=== PATIENT | male | born 1940 | race Caucasian/White ===

== ENCOUNTER 2016-08-04 09:20 | Observation (INO) | payer OTHER, BC ==
[2016-08-04 14:15] LABS: INR 1.06 (0.83-1.16); PROTIME(PATIENT) 13.7 SEC (12.0-15.0)
[2016-08-04] MEDS ORDERED: LIDOCAINE 1% 300 MG/30 ML SDV ONE (15:27)
--- NOTE | 2016-08-04 16:58 | GHP ---
[f rep st] HISTORY AND PHYSICAL DATE OF ADMISSION: 08/04/2016 CHIEF COMPLAINT: Gait disturbance. HISTORY: The patient is a 75-year-old male who has had progressive decline, progressing rapidly sin ce his knee surgery last December. He has developed a shuffling, wide-base gait. He will often karina jl for 5 seconds during ambulation. He has had progressive cognitive decline. He has developed ne w urine and bowel incontinence, although his was unclear whether that might just be he cannot g et to the bathroom in time. They have been seeing Dr. Colvin as an outpatient. He is now being admitted to the hospital to rule out normal pressure hydrocephalus. He had an outpatient CT scan bu t is unable to get MRI secondary to pacemaker. He denies any headache. There have been no other re cent illnesses. He does have a history of recurrent strokes and TIAs and, under the recommendation of neurologist, has been holding Aggrenox since Thursday and they intend to resume at 24 hours after l umbar puncture. PAST MEDICAL HISTORY: 1. Diabetes type 2. 2. Dementia. 3. Gout. 4. Hypertension. 5. History of recurrent strokes and TIAs. 6. Pacemaker due to pauses. 7. BPH, status post GreenLight treatment. PAST SURGICAL HISTORY: Total knee arthroplasty. MEDICATIONS: Please see computer record for full detailed list. He has been holding his Aggrenox s matt Thursday. ALLERGY: To Plavix and iodine. SOCIAL HISTORY: No smoking. No alcohol. Lives with his . REVIEW OF SYSTEMS: Complete review of systems obtained. Review of systems is negative on constitut ional, HEENT, GI, pulmonary, cardiovascular, , hematology, skin, musculoskeletal, endocrine, psych except for positives and negatives as noted in HPI. FAMILY HISTORY: Reviewed and noncontributory to presenting complaint. PHYSICAL EXAMINATION: GENERAL: Well-developed, well-nourished male, in no acute distress. VITAL S IGNS: Temperature is 36.9, pulse 62, blood pressure 147/66, saturating 94% on room air. EYES: Norm al conjunctivae. Pupils react to light. ENT: Normal ears and nose. Hearing intact. Normal teeth . Oropharynx moist. NECK: Trachea midline. No thyromegaly. CHEST: Normal respiratory effort. L UNGS: Clear to auscultation bilaterally. CARDIOVASCULAR: Regular rhythm. No murmur. No lower ex tremity edema. ABDOMEN: Soft, nontender. No hepatosplenomegaly. SKIN: Warm, dry, intact. No ra sh. MUSCULOSKELETAL: No cyanosis or clubbing. Strength is 5/5 upper and lower extremities. NEURO : Cranial nerves intact. Normal sensation to light touch. PSYCH ASSESSMENT: He is alert and orien alfredo x2. Flat affect. Minimally conversant. Will answer only very simple questions briefly. Poor judgment and insight. Poor memory. Gait is assessed. He has a wide base, very shuffling gait. He is stooped forward. He is relatively steady on his feet with a cane and does not appear to be a fa ll risk. DATA: Platelets are 77. INR is normal at 1.06. OLD CHART REVIEW: There are minimal records here, although he did have surgery here with Dr. Matson in April 2015 at which point he had a GreenLight photo vaporization of the prostate for BPH. There are some old labs in the chart including platelets of 118 in April. I have spoken with Dr. Colvin who was seeing him as an outpatient. Intention of this admission w as diagnostic large volume lumbar puncture. He asked me to evaluate the gait both pre and post lumb ar puncture for comparison. ASSESSMENT/PLAN: 1. Gait disturbance, incontinence and cognitive decline. Need to rule out normal pressure hydrocep halus. His outside CT scan is not available to me but presumably it was consistent. He is unable t o get MRI due to pacemaker. He will get a large volume lumbar puncture this morning. I have assess ed his gait on admission and we will reassess tomorrow after tap. Neurology will see him in consult ation. 2. Dementia. Continue Aricept and amantadine. 3. History of stroke. He has been holding Aggrenox for 2 days. This will be resumed 24 hours afte r his procedure. 4. Diabetes type 2. Continue metformin and Actos. 5. Pacemaker. Unfortunately, he is unable to get MRI. 6. Thrombocytopenia. This appears chronic as his platelets were only 118 last April. Will recheck in the morning. CODE STATUS: Full. ADMISSION STATUS: 1. Will admit to observation as I anticipate discharge home tomorrow after procedure. 2. DVT prophylaxis. He is high risk, but will use SCDs only due to planned procedure. /[id number]/MODL
[2016-08-04] MEDS ORDERED: NON-FORMULARY NEW DRUG (Metformin Hcl [Glucophage 1000 Mg] 1,000 MG) PO SCH (18:00)
[2016-08-04] MEDS: metFORMIN HCL 500 MG TAB PO SCH (18:22)
[2016-08-04] MEDS ORDERED: ATORVASTATIN CALCIUM 40 MG TAB PO SCH (21:00)
[2016-08-04] MEDS ORDERED: DUTASTERIDE 0.5 MG CAP PO SCH (21:00)
[2016-08-04] MEDS ORDERED: NON-FORMULARY NEW DRUG (Memantine Hcl [Namenda 10 Mg] 10 MG) PO SCH (21:00)
[2016-08-04] MEDS ORDERED: NON-FORMULARY NEW DRUG (Donepezil Hcl [Aricept] 10 MG) PO SCH (21:00)
[2016-08-04 21:04] VITALS: RESP 16
[2016-08-04] MEDS: DONEPEZIL HCL 5 MG TAB PO SCH ×2 (21:14→21:15)
[2016-08-04] MEDS: FERROUS SULFATE 325 MG TAB PO SCH (21:14)
[2016-08-04] MEDS: MEMANTINE HCL 5 MG TAB PO SCH (21:14)
[2016-08-04] MEDS: MAGNESIUM OXIDE 400 MG TAB PO SCH (21:14)
[2016-08-05 05:26] LABS: % IMMATURE GRANULYOCYTES 0.6 % (0.0-1.1); ABSOLUTE IMMATURE GRANULOCYTES 0.04 10^3/uL (0.00-0.10); ADD DIFF? NO; ADD MORPH? NO; ADD SCAN? NO; ATYPICAL LYMPHOCYTE FLAG 0 (0-99); FRAGMENT RBC FLAG 0 (0-99); HEMATOCRIT 31.2 % (40.0-51.0); HEMOGLOBIN 10.9 g/dL (13.7-17.5); LEFT SHIFT FLG 0 (0-99); LIPEMIA HEMOLYSIS FLAG 90 (0-99); MEAN CELL HEMOGLOBIN 29.5 pg (27.9-34.1); MEAN CELL HEMOGLOBIN CONCENTR. 34.9 g/dL (32.4-36.7); MEAN CELL VOLUME 84.6 fL (81.5-99.8); MEAN PLATELET VOLUME 9.9 fL (8.7-11.7); PLATELET CLUMPS FLAG 0 (0-99); PLATELET COUNT 79 10^3/uL (150-400); RED BLOOD CELL COUNT 3.69 10^6/uL (4.40-6.38); RED CELL DISTRIBUTION WIDTH 14.6 % (11.5-15.2)
[2016-08-05 05:38] LABS: ANION GAP 7 mEq/L (8-16); CALCIUM 9.1 mg/dL (8.5-10.4); CARBON DIOXIDE 29 mEq/l (22-31); CHLORIDE 98 mEq/L (97-110); CREATININE 1.1 mg/dL (0.7-1.3); GLOMERULAR FILTRATION RATE > 60; GLUCOSE 85 mg/dL (70-100); POTASSIUM 3.7 mEq/L (3.5-5.2); SODIUM 134 mEq/L (134-144)
[2016-08-05 07:49] VITALS: PULSE 59; TEMP 98.7; O2SAT 91
[2016-08-05] MEDS ORDERED: PIOGLITAZONE HCL 15 MG TAB PO SCH (09:00)
[2016-08-05] MEDS ORDERED: CYANO/VITAMIN B12 1000 MCG TAB PO SCH (09:00)
[2016-08-05] MEDS ORDERED: LOSARTAN POTASSIUM 50 MG TAB PO SCH (09:00)
[2016-08-05] MEDS ORDERED: ESCITALOPRAM OXALATE 10 MG TAB PO SCH (09:00)
[2016-08-05] MEDS ORDERED: CHOLECALCIFEROL VIT D3 2,000 UNITS TAB/CAP PO SCH (09:00)
[2016-08-05] MEDS ORDERED: NON-FORMULARY NEW DRUG (Pioglitazone Hcl [Actos] 45 MG) PO SCH (09:00)
[2016-08-05] MEDS: FERROUS SULFATE 325 MG TAB PO SCH (09:56)
[2016-08-05] MEDS: MAGNESIUM OXIDE 400 MG TAB PO SCH (09:57)
[2016-08-05] MEDS: MEMANTINE HCL 5 MG TAB PO SCH (09:57)
[2016-08-05] MEDS: metFORMIN HCL 500 MG TAB PO SCH (09:58)
[2016-08-05 14:15] VITALS: BP 146/65
--- NOTE | 2016-08-05 17:07 | GDS ---
[f rep st] DISCHARGE SUMMARY DISCHARGE DIAGNOSES: 1. Probable Lewy body dementia, rule out normal-pressure hydrocephalus. 2. Gait disturbance, incontinence, and cognitive decline. 3. History of stroke. 4. Diabetes, type 2. 5. Pacemaker. 6. Thrombocytopenia history. HOSPITAL COURSE: The patient is a 75-year-old male, who has been seeing Dr. Marv Colvin as an ou tpatient for his cognitive decline. Dr. Colvin feels this is likely Lewy body dementia, but they did decide to rule out normal-pressure hydrocephalus. He was admitted to the hospital for diagnost ic lumbar puncture, with pre-ambulation and post-ambulation assessments. Unfortunately, the lumbar puncture was unsuccessful, and they were unable to obtain more than 5 cc of fluid. He is subsequent ly discharged home in his baseline status. If further concern for normal-pressure hydrocephalus, he should be referred to [facility] where they have a protocol for diagnostic lumb ar puncture with pre-ambulation and post-ambulation exam in a more formal setting. He may resume hi s Aggrenox 24 hours after lumbar puncture. DISCHARGE MEDICATIONS: Please see computerized record for full detailed list. There are no new med ications given at time of hospital discharge. ADDITIONAL DISCHARGE INSTRUCTIONS: 1. Follow up with Dr. Colivn and primary care as needed. 2. Home Health PT/OT and VNS were offered and declined. The patient was seen and examined by me on the day of discharge. /[id number]/MODL
[2016-08-06] MEDS ORDERED: FUROSEMIDE 20 MG TAB PO SCH (09:00)
== END 2016-08-05 14:34 | disposition home or self-care (01) ==
LOC: F3N 12:03
PROVIDERS: ADMIT Internal Medicine; ATTEND Internal Medicine
PROC: 009U3ZZ Drainage of Spinal Canal, Percutaneous Approach (ICD-10-PCS; principal; 2016-08-04)
DX: R26.89 Other abnormalities of gait and mobility (principal); F03.90 Unspecified dementia, unspecified severity, without behavioral disturbance, psychotic disturbance, mood disturbance, and anxiety; R41.9 Unspecified symptoms and signs involving cognitive functions and awareness; R32 Unspecified urinary incontinence; R15.9 Full incontinence of feces; D69.6 Thrombocytopenia, unspecified; E11.9 Type 2 diabetes mellitus without complications; M10.9 Gout, unspecified; I10 Essential (primary) hypertension; N40.0 Benign prostatic hyperplasia without lower urinary tract symptoms; Z96.659 Presence of unspecified artificial knee joint; Z86.73 Personal history of transient ischemic attack (TIA), and cerebral infarction without residual deficits; Z95.0 Presence of cardiac pacemaker
CPT/HCPCS: 62272; 97116; 97163; 97166; G8978; G8979; G8980; G8987; G8988

== ENCOUNTER 2017-05-28 15:28 | Observation (INO) | payer OTHER, BC ==
[2017-05-28] MEDS ORDERED: NS 1,000 ML IV ONE (15:30)
[2017-05-28 15:42] LABS: PLATELET COUNT 80 10^3/uL (150-400)
--- NOTE | 2017-05-28 15:43 | CPEKG ---
Heart Rate: 67 RR Interval: 896 P-R Interval: 300 QRSD Interval: 148 QT Interval: 436 QTC Interval: 461 QRS Blairs: -73 T Wave Blairs: 23 EKG Severity - ABNORMAL ECG - EKG Impression: ATRIAL-PACED RHYTHM EKG Impression: RBBB AND LAFB Electronically Signed By: Uday Veliz 28-May-2017 15:58:49
[2017-05-28 15:52] LABS: INR 0.97 (0.83-1.16); PROTIME(PATIENT) 13.1 SEC (12.0-15.0)
[2017-05-28] MEDS ORDERED: IOPAMIDOL (ISOVUE 370) 100 ML BTL IV ONE (15:52)
--- NOTE | 2017-05-28 15:56 | EDPHY ---
H & P Time Seen by Provider: 05/28/17 15:30 HPI/ROS: CHIEF COMPLAINT: Slurred speech HISTORY OF PRESENT ILLNESS: The patient is a 76-year-old man with a history of Lewy body dementia as well as diabetes and recurrent the CVA and TIAs as well as pacemaker. He was sent from Dr. Colvin office for stroke. Around 9 o' clock this morning he began having slurred speech. He presented to the neurologist where he is followed and Vinicius found him to have slurred speech but no other deficits. He called an ambulance to bring him here. His glucose is 331. They report time of onset around 9:00 a.m.. REVIEW OF SYSTEMS: Unable to obtain secondary to condition EXAM: GENERAL: Moderate distress HEAD: Atraumatic, normocephalic. EYES: Pupils equal round and reactive to light, extraocular movements intact, sclera anicteric, conjunctiva are normal. ENT: TMs normal, nares patent, oropharynx clear without exudates. Dry Moist mucous membranes. NECK: Normal range of motion, supple without lymphadenopathy or JVD. LUNGS: Breath sounds clear to auscultation bilaterally and equal. No wheezes rales or rhonchi. HEART: Regular rate and rhythm without murmurs, rubs or gallops. ABDOMEN: Soft, nontender, normoactive bowel sounds. No guarding, no rebound. No masses appreciated. BACK: No CVA tenderness, no spinal tenderness, step-offs or deformities EXTREMITIES: Normal range of motion, no pitting or edema. No clubbing or cyanosis. NEUROLOGICAL: NIH stroke score since 8. I calculate deficits for difficulty knowing the month, difficulty with gaze tracking, some minor paralysis to the right nasolabial fold and smile asymmetry as well as no offered and can't described in the right leg mild to moderate dysarthria and trouble with attention. Some of this may be baseline however according to including the right leg weakness and not knowing the month. normal sensation PSYCH: Normal mood, normal affect. SKIN: Warm, dry, normal turgor, no visible rashes or lesions. Source: Patient Exam Limitations: No limitations - Medical/Surgical History Hx Asthma: No Hx Chronic Respiratory Disease: No Hx Diabetes: Yes Hx Cardiac Disease: No Hx Renal Disease: No Hx Cirrhosis: No Hx Alcoholism: No Hx HIV/AIDS: No Hx Splenectomy or Spleen Trauma: No Other PMH: pacemaker, total knee replace 12/25 right, green light prostated surgery, DM 2, cva x2 and tia, - Family History Significant Family History: No pertinent family hx - Social History Smoking Status: Never smoked Alcohol Use: Sober Drug Use: None Constitutional: Initial Vital Signs Temperature (C) 37.1 C 05/28/17 15:34 Heart Rate 84 05/28/17 15:34 Respiratory Rate 16 05/28/17 15:34 Blood Pressure 138/99 H 05/28/17 15:34 O2 Sat (%) 90 L 05/28/17 15:34 O2 Delivery Mode Nasal Cannula O2 (L/minute) 2 Allergies/Adverse Reactions: Horse/Equine Containing Products Allergy (Severe, Verified 05/10/15 11:04) Anaphylaxis clopidogrel bisulfate [From Plavix] Allergy (Intermediate, Verified 05/10/15 11: 04) Hives allopurinol Allergy (Verified 05/28/17 15:53) Iodine and Iodide Containing Produc Allergy (Verified 08/04/16 12:38) Hives ragweed pollen Allergy (Verified 08/04/16 12:38) Home Medications: Medication Instructions Recorded Atorvastatin Calcium [Lipitor 40 40 mg PO HS 08/04/16 mg (*)] Cholecalciferol Vit D3 [Vitamin D3 2,000 units PO DAILY 08/04/16 2000 units tab (OTC)] Cyanocobalamin [Vitamin B12 (*)] 1,000 mcg PO DAILY 08/04/16 Donepezil HCl [Aricept] 10 mg PO HS 08/04/16 Ferrous Sulfate [Ferrous Sulf 325 325 mg PO BID 08/04/16 MG (*)] Furosemide [Lasix 20 MG (*)] 20 mg PO Q2D 08/04/16 Losartan Potassium [Cozaar 50 mg 50 mg PO DAILY 08/04/16 (*)] Magnesium Oxide [Magnesium Oxide 400 mg PO BID 08/04/16 400 mg (*)] Memantine HCl [Namenda 10 mg] 10 mg PO BID 08/04/16 Pioglitazone HCl [Actos] 45 mg PO DAILY 08/04/16 metFORMIN HCL [Glucophage 1000 mg] 1,000 mg PO BIDMEAL 08/04/16 Aspirin EC [Aspirin EC 81 mg (*)] 81 mg PO DAILY 05/28/17 Medical Decision Making - Diagnostics EKG Interpretation: An EKG obtained and was read and documented in trace view. Please see trace view for full reading and report. Atrial paced rhythm, no previous for comparison Imaging Results: Imaging Impressions Chest X-Ray 05/28/17 15:31 Impression: Hypoventilated lungs mild airways disease. No acute process. Head CT 05/28/17 15:31 Impression: 1. No acute intracranial hemorrhage or evidence of cortical ischemia. 2. Atrophy and moderate diffuse periventricular white matter disease. Findings discussed with Emergency Department physician, Uday Veliz M.D., on May 28, 2017 at 1544. Head CTA 05/28/17 15:31 Impression: 1. No acute vascular findings. 2. Left mastoid fluid opacification and partial middle ear opacification, with equivocal osseous destruction, which could be related to mastoiditis. 3. Degenerative change in the cervical spine, with multilevel moderate spinal canal narrowing. 4. Additional findings, as above. Stenoses are calculated using [place] Symptomatic Carotid Endarterectomy Trial (NASCET) criteria. Findings discussed with Uday Veliz M.D., on May 28, 2017 at 1643. Neck CTA 05/28/17 15:31 Impression: 1. No acute vascular findings. 2. Left mastoid fluid opacification and partial middle ear opacification, with equivocal osseous destruction, which could be related to mastoiditis. 3. Degenerative change in the cervical spine, with multilevel moderate spinal canal narrowing. 4. Additional findings, as above. Stenoses are calculated using [place] Symptomatic Carotid Endarterectomy Trial (NASCET) criteria. Findings discussed with Uday Veliz M.D., on May 28, 2017 at 1643. Imaging: Discussed imaging studies w/ mail caller Radiologist ED Course/Re-evaluation: Patient has clear deficits that appear to be new today however it is difficult to calculate an NIH stroke score because of his baseline dementia and trouble with his right leg at baseline. According to the his slurred speech and facial abnormalities are certainly new. It is also difficult to ascertain at time of onset. states that he seemed normal when he woke up but then he went back to sleep and when she came home from errands around 9 o'clock he had the symptoms. Patient will not qualify for tPA because of the time as well as the difficult and examination. I will perform CT angio to see if there is possibility for percutaneous intervention and will consult Neurology. 5:15 p.m. I discussed the case with Dr. Ellisno who will admit. Differential Diagnosis: Partial list of the Differential diagnosis considered include but were not limited to; CVA, dissection, hemorrhage and although unlikely based on the history and physical exam, I also considered electrolyte abnormality, infection. - Data Points Laboratory Results: Laboratory Results 05/28/17 15:29 05/28/17 15:29 05/28/17 05/28/17 05/28/17 15: 15: 15: WBC 8.71 10^3/uL 10^3/uL (3.80-9.50) RBC 4.22 10^6/uL L 10^6/uL (4.40-6.38) Hgb 11.7 g/dL L g/dL (13.7-17.5) Hct 34.3 % L % (40.0-51.0) MCV 81.3 fL L fL (81.5-99.8) MCH 27.7 pg L pg (27.9-34.1) MCHC 34.1 g/dL g/dL (32.4-36.7) RDW 14.6 % % (11.5-15.2) Plt Count 80 10^3/uL L 10^3/uL (150-400) MPV 9.5 fL fL (8.7-11.7) Neut % (Auto) 78.4 % H % (39.3-74.2) Lymph % (Auto) 12.3 % L % (15.0-45.0) [place] % (Auto) 6.0 % % (4.5-13.0) Eos % (Auto) 2.5 % % (0.6-7.6) Baso % (Auto) 0.3 % % (0.3-1.7) Nucleat RBC Rel Count 0.0 % % (0.0-0.2) Absolute Neuts (auto) 6.83 10^3/uL H 10^3/uL (1.70-6.50) Absolute Lymphs (auto) 1.07 10^3/uL 10^3/uL (1.00-3.00) Absolute Monos (auto) 0.52 10^3/uL 10^3/uL (0.30-0.80) Absolute Eos (auto) 0.22 10^3/uL 10^3/uL (0.03-0.40) Absolute Basos (auto) 0.03 10^3/uL 10^3/uL (0.02-0.10) Absolute Nucleated RBC 0.00 10^3/uL 10^3/uL (0-0.01) Immature Gran % 0.5 % % (0.0-1.1) Immature Gran # 0.04 10^3/uL 10^3/uL (0.00-0.10) PT 13.1 SEC SEC (12.0-15.0) INR 0.97 (0.83-1.16) APTT 35.5 SEC SEC (23.0-38.0) Sodium 140 mEq/L mEq/L (135-145) Potassium 4.8 mEq/L mEq/L (3.5-5.2) Chloride 99 mEq/L mEq/L (97-110) Carbon Dioxide 31 mEq/l mEq/l (22-31) Anion Gap 10 mEq/L mEq/L (8-16) BUN 25 mg/dL H mg/dL (7-23) Creatinine 1.2 mg/dL mg/dL (0.7-1.3) Estimated GFR 59 Glucose 272 mg/dL H mg/dL (70-100) Calcium 9.1 mg/dL mg/dL (8.5-10.4) Troponin I < 0.012 ng/mL ng/mL (0.000-0.034) Medications Given: Discontinued Medications Diphenhydramine HCl (Benadryl Injection) 50 mg IVP EDNOW ONE Stop: 05/28/17 16:07 Last Admin: 05/28/17 16:06 Dose: 50 mg Sodium Chloride (Ns) 1,000 mls @ 500 mls/hr IV EDNOW ONE PRN Reason: Protocol Stop: 05/28/17 17:29 Last Admin: 05/28/17 15:45 Dose: 1,000 mls Methylprednisolone Sodium Succinate (Solu-Medrol) 125 mg IVP EDNOW ONE Stop: 05/28/17 16:07 Last Admin: 05/28/17 16:06 Dose: 125 mg Departure - Departure Disposition: [facility] Acute Clinical Impression: Acute ischemic stroke Condition: Fair
[2017-05-28] MEDS ORDERED: methylPREDNISolone SOD SUCC 125 MG/2 ML VIAL IVP ONE (16:06)
[2017-05-28] MEDS ORDERED: ONDANSETRON 4 MG/2 ML VIAL IVP PRN (20:02)
[2017-05-28] MEDS ORDERED: HYDROCODONE/APAP 5/325 TAB PO PRN (20:02)
[2017-05-28] MEDS ORDERED: ACETAMINOPHEN 325 MG TAB PO PRN (20:02)
[2017-05-28] MEDS ORDERED: ONDANSETRON DISINTEGRATING 4 MG TAB PO PRN (20:02)
[2017-05-28] MEDS ORDERED: D50W 25 GM/50 ML VIAL IVP PRN (20:04)
--- NOTE | 2017-05-28 20:22 | PDGENHP ---
History and Physical - Chief Complaint slurred speech - History of Present Illness The patient is a 76-year-old man with a history of Lewy body dementia as well as diabetes and recurrent the CVA and TIAs as well as pacemaker. He was sent from Dr. Colvin office to the ED for possible troke. Around 9 o'clock this morning, he began having slurred speech. He presented to the neurologist where he is followed and Vinicius found him to have slurred speech but no other deficits. He called an ambulance to bring him here. They report time of onset around 9:00 a.m.. He was felt not to be a TPA candidate. Neck CTA, HeadCTA, Head CT were unremarkable for acute changes EKG showed a atrial paced rhythm CXR showed no acute findings He is seen on the med floor. He has dementia at baseline and is a poor historian. He does not appear to have slurred speech at this time. He is able to follow commands. He can converse but appears confused. He denies pain, chest pain, shortness of breath. He attempts to recall the events today, but cannot do so. History is obtained from the medical record REVIEW OF SYSTEMS: Unable to obtain secondary to condition PMHx: Lewy Body Dementia DM Hx of CVA/TIA's HTN PSHx: unknown SocHx: lives with . no T/E/I FmHx: noncontributory History Information - Allergies/Home Medication List Allergies/Adverse Reactions: Horse/Equine Containing Products Allergy (Severe, Verified 05/10/15 11:04) Anaphylaxis clopidogrel bisulfate [From Plavix] Allergy (Intermediate, Verified 05/10/15 11: 04) Hives allopurinol Allergy (Verified 05/28/17 15:53) Iodine and Iodide Containing Produc Allergy (Verified 08/04/16 12:38) Hives ragweed pollen Allergy (Verified 08/04/16 12:38) Home Medications: Atorvastatin Calcium [Lipitor 40 mg (*)] 40 mg PO HS 08/04/16 [Last Taken ] Cholecalciferol Vit D3 [Vitamin D3 2000 units tab (OTC)] 2,000 units PO DAILY [Last Taken 05/28/17] Cyanocobalamin [Vitamin B12 (*)] 1,000 mcg PO DAILY 08/04/16 [Last Taken ] Donepezil HCl [Aricept] 10 mg PO HS 08/04/16 [Last Taken 05/27/17] Ferrous Sulfate [Ferrous Sulf 325 MG (*)] 325 mg PO BID 08/04/16 [Last Taken ] Furosemide [Lasix 20 MG (*)] 20 mg PO Q2D 08/04/16 [Last Taken 05/27/17] Losartan Potassium [Cozaar 50 mg (*)] 50 mg PO DAILY 08/04/16 [Last Taken ] Magnesium Oxide [Magnesium Oxide 400 mg (*)] 400 mg PO BID 08/04/16 [Last Taken 05/28/17] Memantine HCl [Namenda 10 mg] 10 mg PO BID 08/04/16 [Last Taken 05/28/17] Pioglitazone HCl [Actos] 45 mg PO DAILY 08/04/16 [Last Taken 05/28/17] metFORMIN HCL [Glucophage 1000 mg] 1,000 mg PO BIDMEAL 08/04/16 [Last Taken ] Aspirin EC [Aspirin EC 81 mg (*)] 81 mg PO DAILY 05/28/17 [Last Taken Unknown] I have personally reviewed and updated: medical history, social history - Social History Smoking Status: Never smoked Alcohol Use: Sober Drug Use: None Review of Systems Review of Systems: ROS: 10pt was reviewed & negative except for what was stated in HPI & below Physical Exam Physical Exam: Temp Pulse Resp BP Pulse Ox 37.0 C 61 12 181/82 H 97 05/28/17 18:47 05/28/17 18:47 05/28/17 18:47 05/28/17 18:47 05/28/17 18:47 O2 (L/minute) 2 Constitutional: no apparent distress Eyes: PERRL Ears, Nose, Mouth, Throat: moist mucous membranes, hearing normal Cardiovascular: regular rate and rhythym, No edema Respiratory: no respiratory distress, no rales or rhonchi, clear to auscultation Gastrointestinal: normoactive bowel sounds, soft, non-tender abdomen Genitourinary: no bladder fullness Skin: warm Neurologic: CN II-XII Intact, No AAOx3, No facial droop Psychiatric: interacting appropriately, not anxious, encephalopathic Lymph, Heme, Immunologic: No petechiae Lab Data & Imaging Review 05/28/17 15:29 05/28/17 15: WBC 8.71 10^3/uL (3.80-9.50) 05/28/17 15: RBC 4.22 10^6/uL (4.40-6.38) L 05/28/17 15: Hgb 11.7 g/dL (13.7-17.5) L 05/28/17 15: Hct 34.3 % (40.0-51.0) L 05/28/17 15: MCV 81.3 fL (81.5-99.8) L 05/28/17 15: MCH 27.7 pg (27.9-34.1) L 05/28/17: MCHC 34.1 g/dL (32.4-36.7) 05/28/17 15: RDW 14.6 % (11.5-15.2) 05/28/17: Plt Count 80 10^3/uL (150-400) L 05/28/17: MPV 9.5 fL (8.7-11.7) 05/28/17 15: Neut % (Auto) 78.4 % (39.3-74.2) H 05/28/17: Lymph % (Auto) 12.3 % (15.0-45.0) L 05/28/17: [place] % (Auto) 6.0 % (4.5-13.0) 05/28/17: Eos % (Auto) 2.5 % (0.6-7.6) 05/28/17: Baso % (Auto) 0.3 % (0.3-1.7) 05/28/17: Nucleat RBC Rel Count 0.0 % (0.0-0.2) 05/28/17: Absolute Neuts (auto) 6.83 10^3/uL (1.70-6.50) H 05/28/17 15: Absolute Lymphs (auto) 1.07 10^3/uL (1.00-3.00) 05/28/17: Absolute Monos (auto) 0.52 10^3/uL (0.30-0.80) 05/28/17 15:29 Absolute Eos (auto) 0.22 10^3/uL (0.03-0.40) 05/28/17 15: Absolute Basos (auto) 0.03 10^3/uL (0.02-0.10) 05/28/17 15: Absolute Nucleated RBC 0.00 10^3/uL (0-0.01) 05/28/17 15: Immature Gran % 0.5 % (0.0-1.1) 05/28/17 15: Immature Gran # 0.04 10^3/uL (0.00-0.10) 05/28/17 15: PT 13.1 SEC (12.0-15.0) 05/28/17 15: INR 0.97 (0.83-1.16) 05/28/17 15: APTT 35.5 SEC (23.0-38.0) 05/28/17 15:29 Sodium 140 mEq/L (135-145) 05/28/17 15: Potassium 4.8 mEq/L (3.5-5.2) 05/28/17 15: Chloride 99 mEq/L (97-110) 05/28/17 15: Carbon Dioxide 31 mEq/l (22-31) 05/28/17 15: Anion Gap 10 mEq/L (8-16) 05/28/17 15:29 BUN 25 mg/dL (7-23) H 05/28/17 15: Creatinine 1.2 mg/dL (0.7-1.3) 05/28/17 15: Estimated GFR 59 05/28/17 15: Glucose 272 mg/dL (70-100) H 05/28/17 15:29 Calcium 9.1 mg/dL (8.5-10.4) 05/28/17 15: Troponin I < 0.012 ng/mL (0.000-0.034) 05/28/17 15:29 Assessment & Plan Assessment: #TIA vs CVA -imaging negative thus far -Neuro to see -will wait for their recc prior to ordering MRI -Sx's appear resolved or resolving -check lipid panel -Tele -for now cont Aspirin at current dose #DM: -hold metformin -start ISS #HTN -allow permissive HTN for now Code: presumed full code. Will need to be confirmed SCDs for DVT proph
[2017-05-28] MEDS ORDERED: DONEPEZIL HCL 5 MG TAB PO SCH (21:00)
[2017-05-28] MEDS ORDERED: ATORVASTATIN CALCIUM 40 MG TAB PO SCH (21:00)
[2017-05-28] MEDS: FERROUS SULFATE 325 MG TAB PO SCH (21:24)
[2017-05-28] MEDS: MAGNESIUM OXIDE 400 MG TAB PO SCH (21:25)
[2017-05-28] MEDS: MEMANTINE HCL 5 MG TAB PO SCH (21:25)
[2017-05-29 05:17] LABS: PLATELET COUNT 85 10^3/uL (150-400)
[2017-05-29] MEDS: FERROUS SULFATE 325 MG TAB PO SCH (07:38)
[2017-05-29] MEDS: INSULIN LISPRO 100 UNIT/ML SC SCH ×3 (07:39→14:05)
[2017-05-29] MEDS: MAGNESIUM OXIDE 400 MG TAB PO SCH (07:39)
[2017-05-29] MEDS: MEMANTINE HCL 5 MG TAB PO SCH (07:40)
[2017-05-29] MEDS ORDERED: MAGNESIUM SULF 2 GM/WATER 50 ML IV ONE (08:44)
[2017-05-29] MEDS ORDERED: PIOGLITAZONE HCL 15 MG TAB PO SCH (09:00)
[2017-05-29] MEDS ORDERED: ASPIRIN EC 81 MG TAB PO SCH (09:00)
[2017-05-29] MEDS ORDERED: CHOLECALCIFEROL VIT D3 2,000 UNITS TAB/CAP PO SCH (09:00)
[2017-05-29] MEDS ORDERED: CYANO/VITAMIN B12 1000 MCG TAB PO SCH (09:00)
[2017-05-29 11:11] VITALS: BP 147/59
--- NOTE | 2017-05-29 12:04 | PDIAF ---
- Diagnosis Diagnosis: slurred speech Code Status: Full Code - Medication Management Discharge Medications: Medications to Continue on Transfer Atorvastatin Calcium [Lipitor 40 mg (*)] 40 mg PO HS 08/04/16 [Last Taken ] Cholecalciferol Vit D3 [Vitamin D3 2000 units tab (OTC)] 2,000 units PO DAILY [Last Taken 05/28/17] Cyanocobalamin [Vitamin B12 (*)] 1,000 mcg PO DAILY 08/04/16 [Last Taken ] Donepezil HCl [Aricept] 10 mg PO HS 08/04/16 [Last Taken 05/27/17] Ferrous Sulfate [Ferrous Sulf 325 MG (*)] 325 mg PO BID 08/04/16 [Last Taken ] Furosemide [Lasix 20 MG (*)] 20 mg PO Q2D 08/04/16 [Last Taken 05/27/17] Losartan Potassium [Cozaar 50 mg (*)] 50 mg PO DAILY 08/04/16 [Last Taken ] Magnesium Oxide [Magnesium Oxide 400 mg (*)] 400 mg PO BID 08/04/16 [Last Taken 05/28/17] Memantine HCl [Namenda 10 mg] 10 mg PO BID 08/04/16 [Last Taken 05/28/17] Pioglitazone HCl [Actos] 45 mg PO DAILY 08/04/16 [Last Taken 05/28/17] metFORMIN HCL [Glucophage 1000 mg] 1,000 mg PO BIDMEAL 08/04/16 [Last Taken ] Acetaminophen [Tylenol 325mg (*)] 650 mg PO Q4HRS PRN tab 05/29/17 [Last Taken Unknown] Aspirin [Aspirin 325 mg (*)] 325 mg PO DAILY #30 tab 05/29/17 [Last Taken Unknown] Discharge Medications: Refer to the Discharge Home Medication list for PRN reason. PICC Care - Routine: N/A - Orders Services needed: Home Care, Certified Gis Physical Scientist, Physical Therapy, Speech Language Pathologist Home Care Face to Face: I certify that this patient was under my care and that I had the required [id number] encounter meeting the encounter requirements on the discharge day. My findings support the fact that the patient is homebound as defined in Home Care Face to Face Continued: CMS Chapter 7 Medicare Benefits Manual 30.1.1 , The condition of the patient is such that there exists a normal inability to leave home and consequently, leaving home would require a considerable and taxing effort. Diet Recommendation: no restrictions on diet Diet Texture: Regular Texture Diet, Thin Liquids - Follow Up Care Current Providers and Referrals: Patient,NotPresent [Unknown] - As per Instructions Marv Colvin MD [Medical Doctor] -
--- NOTE | 2017-05-29 13:42 | GCON ---
[f rep st] CONSULTATION NEUROLOGY CONSULTATION DATE OF CONSULTATION: 05/29/2017 REFERRING PHYSICIAN: Keegan Pan MD CHIEF COMPLAINT: Dysarthria. 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 Colvin on a routine basis for previous strokes and Lewy Body dementia. He has a previous history of 2 small vessel lacunar-type pontine infarcts treated at [facility]. He also has a history of Lewy Body dementia as noted above. 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 He was coming in for routine appointment due to some fluctuation characterized by dysarthria yesterday. The time of onset was not clear according to his . It is not clear if it started the day before or yesterday morning. In any case, while she was driving him to see Dr. Colvin , she noted that his speech was less clear than usual around 9 a.m. when this was noted. Upon arrival to our office he was sent to our ED via ambulance under a stroke alert. He had a full activation of stroke alert with a head CT and CTA of the head and neck. Head CT did not show any acute abnormality. CTA of the head and neck did not show any large vessel occlusion. Laboratory studies did not show any significant electrolyte derangements. He has no dysuria. Chest x-ray does not show obvious pneumonia. His feels like there is a little bit of increased left facial weakness along with the slurred speech, but he had a remarkable recovery overnight of the majority of the slurred speech and is essentially near his baseline again. There was no weakness or numbness in the limbs. REVIEW OF SYSTEMS: A review of systems was done and only pertinent to HPI. For past medical history, social history, family history, home medications, allergies, see Dr. Pan's H and P. PHYSICAL EXAM: VITAL SIGNS: Blood pressure is 131/72, temperature 36.9, O2 sats 98%, heart rate 72. GENERAL: No acute distress. Very pleasant gentleman. CRANIAL NERVE EXAM: There does appear to be some asymmetry of his face at baseline with some left facial weakness, but with activation of his muscles there was no definite weakness found with smiling. Extraocular movements are full. There was some hypomimia on general examination. On motor exam, there is no pronator drift. There is some bradykinesia and rigidity. No rest tremor today on exam. Light touch was normal in all 4 extremities. IMPRESSION AND PLAN: 1. Previous strokes. 2. Lewy Body disease. 3. Dysarthria, resolving. Overall, the patient may have had a recurrent small vessel type stroke versus a fluctuation in his Lewy Body dementia in the setting of previous strokes. Not entirely clear. The patient is on multiple medications including aspirin 81 mg daily. He has multiple vascular comorbidities including diabetes and hypertension. He is on statin therapy. We had a long discussion today with the patient and his . Essentially, we 1st discussed attempting MRI brain in light of his pacemaker. She did have the pacemaker information card. Overall, it would be unlikely to change agent and may be contraindicated in light of the pacemaker . If he did have another small vessel infarct - the treatment would entail optimizing risk factors and increasing his aspirin dose. The patient has a Plavix allergy and cannot take Aggrenox now as it needs to be crushed and Aggrenox is a time release medication. Therefore, if we can assume it is a small vessel type infarct, and will prophylactically increase his aspirin to 325 mg daily. We discussed potential risks, benefits and alternatives of this aspirin dose increase. We also discussed the possibility of a stroke caused by a cardio-embolism. He will follow up with his programmer analyst consultant to screen for atrial fibrillation by either sampling his pacemaker data or external ECG monitoring depending on the capability of his pacemaker. They are agreeable to that plan. He has no symptoms of a UTI. We will defer on checking any urinalysis now per hospital medicine. We will have him meet with therapies for commentary on any further home care needs they may have. Otherwise, he will continue all his other medications as prescribed and follow up with Dr. Colvin as an outpatient. He will likely discharge home later today. No further recommendations. We will sign off and follow up as needed. Please do not hesitate to call with any questions or changes in neurologic status with this very pleasant patient. Seventy total minutes floor time today reviewing outpatient records, inpatient records, neuro imaging, counseling with the patient and his and coordination of care. /[id number]/MODL MTDD
--- NOTE | 2017-05-29 15:05 | GDS ---
[f rep st] DISCHARGE SUMMARY DISCHARGE DIAGNOSES: 1. Dysarthria. 2. Diabetes mellitus. 3. Lewy body disease. CONSULTATIONS: Jeffry Haley MD of Neurology. STUDIES AND PROCEDURES: 1. CT of the head. 2. CT angio of the head and neck. PHYSICAL EXAM: GENERAL: The patient is alert. VITAL SIGNS: Afebrile at 36.6, pulse 61, respiratory rate is 18, blood pressure is 147/59. He is saturating greater than 90% on room air. I have seen an d evaluated the patient on the day of discharge. HOSPITAL COURSE: The patient is a 76-year-old male sent to the emergency room from his neurologist's office suffering from some dysarthria. He was evaluated during this hospitalization with no identif iable etiology of his symptoms. His symptoms have resolved. He does have history of previous stroke s as well as Lewy body disease. According to his , he appears to be at baseline. I reviewed his disposition with Dr. Haley. We have agreed to increase his aspirin to 325 mg daily and follow up with his regular neurologist, Dr. Colvin. The patient also suffers from diabetes mellitus and is note d to be difficult and noncompliant with outpatient medications and regimen. During this hospitalizati on his metformin was held secondary to his contrast load. We will reinitiate his home medications at the time of disposition. His hemoglobin A1c is 9.1. His has stated that they will follow up w ith the primary care physician regarding this abnormality. The patient is sometimes noncompliant and never checks blood glucose at home. We will provide sliding scale insulin prior to disposition and he will follow with his primary care physician. I have had a long discussion with his regarding this and she is comfortable with this plan. DISCHARGE MEDICATIONS: Please refer to EMR form. I have not adjusted the patient's previously prescr ibed home medications other than the discontinuation of his aspirin 81 mg daily and initiation of asp irin 325 mg daily. /[id number]/MODL
--- NOTE | 2017-05-29 17:15 | ASDISCHSUM ---
Discharge Information Plan Status:Home with Home Health Medically Cleared to Leave: Discharge Date:05/29/2017 02:37 PM CM D/C Disposition:Home Health Service ADT D/C Disposition:Home Health Service Projected Discharge Date:05/29/2017 11:00 AM Transportation at D/C: Discharge Delay Reason: Follow-Up Date:05/29/2017 11:00 AM Discharge Slot: Final Diagnosis: Placement Information Referral Type:*Home Health Care Services Referral ID:[id number] Provider Name:[facility] [address] [address] Address 2: City:[place] Selection Factors: State:[place] Patient Contact Information Contact Name:JABIER Relationship: Address:[address] City:[place] Alternate Phone: State/Zip Code:[place] [address] Email: Financial Information Financial Class:Medicare Primary Plan Desc:MEDICARE OUTPATIENT Primary Plan Number:[id number] Secondary Plan Desc:[employer] [facility] Secondary Plan Number:[id number] Assessment Information Case Management Discharge Plan Note Case Management Discharge Discharge Order Complete? Answers: Yes Patient to Obtain Answers: via Family Medications Transportation Arranged Answers: Family/Friends Family Notified Answers: Yes Notes: present Discharge Comments Notes: Pt will dc home today w/. He will be followed by [facility]. Met w/ and pt to discuss; he was current with [facility] but would like to try another agency, that being [facility]. Spoke w/Lee Ann at [facility] and they are able to accept. Agency # provided to pt's . Address confirmed as well as medicare homebound policy. Date Signed: 05/29/2017 02:08 PM Electronically Signed By:Teresita Cooper RN Intervention Information
== END 2017-05-29 14:37 | disposition home health service (06) ==
LOC: EDUNIT# → F3N 18:10
PROVIDERS: ADMIT Internal Medicine; ATTEND Internal Medicine
DX: R47.81 Slurred speech (principal); E86.9 Volume depletion, unspecified; J98.4 Other disorders of lung; H74.92 Unspecified disorder of left middle ear and mastoid; G31.83 Neurocognitive disorder with Lewy bodies; G31.9 Degenerative disease of nervous system, unspecified; R47.1 Dysarthria and anarthria; E11.9 Type 2 diabetes mellitus without complications
CPT/HCPCS: 70450; 70496; 70498; 71045; 92523; 92610; 93005; 96374; 96375; 97161; 97165; 99285; G0378; G8978; G8979; G8987; G8988; G8989; G8996; G8997; G8998; G8999; G9158; G9186; J1200; J1815; J2930; J3475; Q9967